=== PATIENT | male | born 1985 | race American Indian/Alaskan Native ===

== ENCOUNTER 2019-02-05 18:53 | Emergency (ER) | payer OTHER, BC ==
[2019-02-05 19:26] VITALS: BP 130/90
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
[2019-02-05] MEDS ORDERED: IBUPROFEN PO ONE (20:29)
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
== END 2019-02-05 22:19 | disposition home or self-care (01) ==
LOC: ED 18:53
DX: S13.4XXA Sprain of ligaments of cervical spine, initial encounter (principal); S66.911A Strain of unspecified muscle, fascia and tendon at wrist and hand level, right hand, initial encounter; S00.03XA Contusion of scalp, initial encounter; Z79.899 Other long term (current) drug therapy; V49.49XA Driver injured in collision with other motor vehicles in traffic accident, initial encounter; Y93.89 Activity, other specified; Y92.488 Other paved roadways as the place of occurrence of the external cause; Y99.8 Other external cause status
CPT/HCPCS: 70450; 72125